=== PATIENT | female | born 1990 | race Caucasian/White ===

== ENCOUNTER → 2017-02-07 | Outpatient (CLI) | payer OTHER ==
--- NOTE | 2017-02-07 14:45 | RADIOLOGY REPORT (SQ) ---
EXAM DESCRIPTION: HYSTEROSALPINGOGRAM; HYSTERO CATH/INJECTION COMPLETED DATE/TIME: 02/07/2017 2:08 pm REASON FOR STUDY: INFERTILITY (N97.9) N97.9 FEMALE INFERTILITY, UNSPECIFIED COMPARISON: None. PROCEDURE: PRE-PROCEDURE: Procedure was explained to the patient. She was told to expect cramping du ring the procedure, and possible spotting post procedure. PROCEDURE: The cervix was prepped in sterile fashion. Under direct visual inspection, the cervix was cannulated with the hysterosalpingogram catheter and contrast injected. TECHNIQUE: Temporal fluoroscopic images acquired during the procedure stored to PACS. FLUOROSCOPY TIME: Less than 1 second 23 digital images saved to PACS. LIMITATIONS: None. FINDINGS: UTERUS: No identified anomalies. No synechia. RIGHT ADNEXA: Normal size fallopian tube. Free spill of contrast into the peritoneal cavity. There was preferential flow out the right fallopian tube. LEFT ADNEXA: Normal size fallopian tube. There was preferential flow out the right fallopian tube. At fluoroscopy and on the digital fluoroscopic images, no definite flow out of the left fallopian tub e is identified. POST PROCEDURE: The patient tolerated the procedure with no adverse effects. IMPRESSION: Normal intrauterine cavity and right fallopian tube with free spillage of contrast aroun d the right ovary. There was preferential flow out the right fallopian tube. Although the left fallopian tube opacifies with contrast there was no free spillage into the pelvic peritoneal space. Exam is equivocal for pa tency of the left fallopian tube. Consider repeat HSG in one month COMMENT: Quality ID 145: Final reports for procedures using fluoroscopy that document radiation exp osure indices, or exposure time and number of fluorographic images (if radiation exposure indices are not available) TECHNICAL DOCUMENTATION: JOB ID: [id number] [employer]- All Rights Reserved
== END ==
LOC: RAD 12:50
PROVIDERS: ATTEND Obstetrics & Gynecology
DX: N97.9 Female infertility, unspecified (principal)
CPT/HCPCS: 58340; 74740

== ENCOUNTER → 2017-04-17 | Outpatient (CLI) | payer OTHER ==
--- NOTE | 2017-04-17 16:37 | RADIOLOGY REPORT (SQ) ---
EXAM DESCRIPTION: HYSTEROSALPINGOGRAM; HYSTERO CATH/INJECTION COMPLETED DATE/TIME: 04/17/2017 3:04 pm REASON FOR STUDY: FEMALE INFERTILITY (N97.9) N97.9 FEMALE INFERTILITY, UNSPECIFIED COMPARISON: 02/07/2017 hysterosalpingogram PROCEDURE: PRE-PROCEDURE: Procedure was explained to the patient. She was told to expect cramping du ring the procedure, and possible spotting post procedure. PROCEDURE: The cervix was prepped in sterile fashion. Under direct visual inspection, the cervix was cannulated with the hysterosalpingogram catheter and contrast injected. TECHNIQUE: Temporal fluoroscopic images acquired during the procedure stored to PACS. FLUOROSCOPY TIME: Less than 5 seconds 29 images saved to PACS. LIMITATIONS: None. FINDINGS: UTERUS: No identified anomalies. No synechia. RIGHT ADNEXA: Normal size fallopian tube. Free spill of contrast into the peritoneal cavity. LEFT ADNEXA: Normal size fallopian tube. There are adhesions between the tube then ovary, no free sp illage of contrast out the left fallopian tube was seen today. POST PROCEDURE: The patient tolerated the procedure with no adverse effects. IMPRESSION: Patent right fallopian tube Normal endometrial canal Adhesions between the left fallopian tube and ovary, no free spillage of contrast was achieved. This is similar compared to 02/07/2017 COMMENT: Quality ID 145: Final reports for procedures using fluoroscopy that document radiation exp osure indices, or exposure time and number of fluorographic images (if radiation exposure indices are not available) TECHNICAL DOCUMENTATION: JOB ID: [id number] [employer]- All Rights Reserved
== END ==
LOC: RAD 13:42
PROVIDERS: ATTEND Obstetrics & Gynecology
DX: N97.9 Female infertility, unspecified (principal)
CPT/HCPCS: 58340; 74740; 81025

== ENCOUNTER 2018-01-23 11:54 | Emergency (ER) | payer OTHER ==
[2018-01-23 13:04] VITALS: BP 113/61
--- NOTE | 2018-01-23 13:13 | ER Document Report ---
ED General - General Chief Complaint: Pelvic Pain Stated Complaint: PELVIC AND CHEST PAIN Time Seen by Provider: 01/23/18 12:44 TRAVEL OUTSIDE OF THE [place] IN LAST 30 DAYS: No - HPI Notes: Patient is a 27-year-old female who presents to the ED complaining of left- sided chest wall pain intermittently over the last 2 years. Patient states that she also has pelvic cramping that has been intermittent since her menstrual period ended a few days ago. Patient states that she has been evaluated by cardiology in the past and had a negative workup performed. Patient states that she is primarily here for her pelvic cramping. She is unable to get an appointment with her SENIOR OPERATIONS MANAGER today who is questioning endometriosis so she came to the emergency department. She has been eating and drinking without any difficulties. She is urinating normally and having normal bowel movements. She has not noticed any vaginal discharge, odor, or bleeding. Patient states that her last menstrual period began 8 days ago and ended 2-3 days thereafter. Patient states that she currently does not have any chest pain or any pelvic cramping. Patient states that she has been in a monogamous relationship, and does not believe that she has any concern for STD/STI, but would like testing performed. Patient states that she is able to ambulate and perform her activities of daily living including stairs and exercising without any dyspnea on exertion or development/worsening chest pain. Denies any headache, fever, URI, sore throat, palpitations, syncope, cough, shortness of breath, wheeze, dyspnea, nausea/vomiting/diarrhea, urinary retention, dysuria, hematuria, back pain, loss of control of bowel or bladder, numbness/tingling, saddle anesthesia, muscle paralysis/weakness, or rash. Denies any prolonged immobilization, distance travel, recent surgery/trauma, personal cancer history , hormone use, or previous DVT/PE. - Related Data Allergies/Adverse Reactions: caffeine [Caffeine] Adverse Reaction (Verified 01/23/18 11:56) Past Medical History - Social History Smoking Status: Current Every Day Smoker Chew tobacco use (# tins/day): No Frequency of alcohol use: None Drug Abuse: None Family History: Reviewed & Not Pertinent Patient has suicidal ideation: No Patient has homicidal ideation: No Renal/ Medical History: Denies: Hx Peritoneal Dialysis Review of Systems - Review of Systems -: Yes All other systems reviewed and negative Physical Exam - Vital signs Vitals: Temp Resp BP 98.9 F 14 113/61 01/23/18 12:05 01/23/18 12:05 01/23/18 12:05 - Notes Notes: PHYSICAL EXAMINATION: GENERAL: Well-appearing, well-nourished and in no acute distress. HEAD: Atraumatic, normocephalic. EYES: Pupils equal round and reactive to light, extraocular movements intact, conjunctiva are normal. ENT: EAC's clear bilaterally. TMs intact bilaterally without erythema fluid or perforation. No tonsillar hypertrophy or erythema. Chest: + mild reproducible tenderness to the chest wall and with stretching of the pectorals. NECK: Normal range of motion, supple without lymphadenopathy LUNGS: Breath sounds clear to auscultation bilaterally and equal. No wheezes rales or rhonchi. HEART: Regular rate and rhythm without murmurs ABDOMEN: Soft, nontender, nondistended abdomen. No guarding, no rebound. No masses appreciated. Normal bowel sounds present. CVA tenderness negative bilaterally. Female : No inguinal adenopathy. External genitalia without erythema, lesions , or masses. Vaginal mucosa pink. Cervix parous, pink, and without discharge. Uterus is smooth. No adnexal tenderness. Musculoskeletal: FROM to passive/active. Strength 5+/5. Extremities: No cyanosis/clubbing/edema b/l. Peripheral pulses 2+. Capillary refill less than 3 seconds. NEUROLOGICAL: Normal speech, normal gait. PSYCH: Normal mood, normal affect. SKIN: Warm, Dry, normal turgor, no rashes or lesions noted. Course - Re-evaluation Re-evalutation: 01/23/18 14:44 Patient is an afebrile, well-hydrated, 27-year-old female who presents to the ED with pelvic pain/intermittent cramps unspecified as well as chest wall pain. Vitals are acceptable without any significant tachycardia, tachypnea, or hypoxia. PE is otherwise unremarkable aside from the reproducible chest wall tenderness. Urinalysis, wet mount, and hCG are unremarkable for any acute pathology. Chlam/gonorrhea tests are pending. Patient given rocephin and zithromax as precautionary for chlamydia/gonorrhea. Patient is nontoxic- appearing is tolerating p.o. without any difficulties. Patient reports having the same chest symptoms evaluated by cardiology in the past and states that she is currently not worried about it at this time. Patient is currently asymptomatic and has not had any development of dyspnea on exertion or shortness of breath. EKG and chest x-ray were unremarkable. Patient is PERC negative. No other labs or imaging warranted at this time based on H&P. Low suspicion/risk for ACS, PE, pericarditis, dissection, pneumothorax, acute appendicitis, bowel obstruction, acute cholecystitis, acute cholangitis, perforated diverticulitis, incarcerated hernia, pancreatitis, perforated ulcer, peritonitis, sepsis, pelvic inflammatory disease, ectopic , tubo- ovarian abscess, ovarian torsion, or other systemic emergent condition at this time. Patient is aware that her condition can change from initial presentation and she needs to monitor symptoms closely and seek medical attention if any acute changes. Conservative measures otherwise for symptoms. Recheck with your PCM/OBGYN in 3-5 days. Return to the ED with any worsening/concerning symptoms otherwise as reviewed in discharge. Patient is in agreement. - Vital Signs Vital signs: Temp Pulse Resp BP Pulse Ox 98.9 F 14 113/61 01/23/18 12:05 01/23/18 12:05 01/23/18 12:05 - Laboratory Laboratory results interpreted by me: 01/23/18 12:10 Urine Blood SMALL H Procedures - Pelvic Exam Pelvic exam Time completed: 13:30 Cultures obtained: Yes Wet prep obtained: Yes Witnessed by: female nurse Discharge - Discharge Clinical Impression: Pelvic pain, Chest wall pain Chest pain, unspecified Qualifiers: Chest pain type: unspecified Qualified Code(s): R07.9 - Chest pain, unspecified Condition: Stable Disposition: HOME, SELF-CARE Instructions: Chest Wall Pain ([facility]), Chest Pain of Unclear Cause ([facility]), Pelvic Pain ([facility]) Additional Instructions: Maintain fluid intake Proper hygenic technique Keep the skin clean Safe sexual practices with condoms everytime Tylenol/ibuprofen as needed Check in with the health department this week for further testing if warranted Your chlamydia/Ghon test are pending and you will be notified if positive results; you may call in 1 day for the results as well Return immediately if symptoms worsen F/u with your PCM/OBGYN in 3-5 days for a recheck Return to the ED with any development of DUNN/fever, trouble with vision, eye redness, worsening pain, urethral discharge, urinary retention, blood in the urine, flank pain, abdominal pain, n/v, Chest Pain, shortness of breath, joint pains, trouble breathing, or any other worsening/concerning symptoms as needed otherwise. You may have to return to the ED if there are any significant abnormalities with your results. Referrals: CONRAD RUIZ MD [ACTIVE STAFF] - Follow up in 3-5 days
[2018-01-23 13:43] LABS: APPEARANCE,URINE CLEAR; BILIRUBIN,URINE NEGATIVE (NEGATIVE); COLOR,URINE YELLOW; GLUCOSE, URINE NEGATIVE (NEGATIVE); KETONES,URINE NEGATIVE (NEGATIVE); LEUKOCYTE ESTERASE,URINE NEGATIVE (NEGATIVE); NITRITE,URINE NEGATIVE (NEGATIVE); PROTEIN,URINE NEGATIVE (NEGATIVE); URINE SPECIFIC GRAVITY 1.019; UROBILINOGEN,URINE NEGATIVE mg/dL (<2.0)
[2018-01-23] MEDS ORDERED: LIDOCAINE 1% INJ-PF (10 MG/ML) 30 ML SDV INJ ONE (13:55)
[2018-01-23] MEDS ORDERED: AZITHROMYCIN 250 MG TABLET PO ONE (13:55)
[2018-01-23] MEDS ORDERED: CEFTRIAXONE INJ 250 MG VIAL IM ONE (13:55)
--- NOTE | 2018-01-23 14:01 | RADIOLOGY REPORT (SQ) ---
EXAM DESCRIPTION: CHEST 2 VIEWS COMPLETED DATE/TIME: 01/23/2018 1:47 pm REASON FOR STUDY: chest pain COMPARISON: None. EXAM PARAMETERS: NUMBER OF VIEWS: two views TECHNIQUE: Digital Frontal and Lateral radiographic views of the chest acquired. RADIATION DOSE: NA LIMITATIONS: none FINDINGS: LUNGS AND PLEURA: No opacities, masses or pneumothorax. No pleural effusion. MEDIASTINUM AND HILAR STRUCTURES: No masses or contour abnormalities. HEART AND VASCULAR STRUCTURES: Heart normal size. No evidence for failure. BONES: No acute findings. HARDWARE: None in the chest. OTHER: No other significant finding. IMPRESSION: NO ACUTE RADIOGRAPHIC FINDING IN THE CHEST. TECHNICAL DOCUMENTATION: JOB ID: [id number] [employer]- All Rights Reserved Reading location - IP/workstation name: [email or web address]
--- NOTE | 2018-01-23 14:12 | EKG REPORT ---
SEVERITY:- NORMAL ECG - SINUS RHYTHM : Confirmed by: Rolando Cole MD 23-Jan-2018 14:10:50
[2018-01-23 14:16] LABS: BACTERIA (WET MOUNT) 4+ BACTERIA SEEN; T.VAGINALIS (WET MOUNT) NO TRICHOMONAS SEEN; WBCS (WET MOUNT) 2+ WBCS SEEN; YEAST (WET MOUNT) NO YEAST SEEN
[2018-01-23 15:47] LABS: CHLAM PCR NOT DETECTED (NOT DETECT); GON PCR NOT DETECTED (NOT DETECT)
== END 2018-01-23 14:41 | disposition home or self-care (01) ==
LOC: ER 11:54
DX: R10.2 Pelvic and perineal pain (principal); R07.89 Other chest pain; F17.200 Nicotine dependence, unspecified, uncomplicated
CPT/HCPCS: 93005; 99284; 96372; 87086; 87210; 81025; 81001; 87491; 87591; 71046; 93010; J3490; J0696